=== PATIENT | female | born 1945 | race Caucasian/White ===

== ENCOUNTER 2017-06-02 12:59 | Emergency (ER) | payer OTHER ==
--- NOTE | 2017-06-02 13:15 | EDPHY ---
H & P Time Seen by Provider: 06/02/17 13:13 HPI/ROS: CHIEF COMPLAINT: Left-sided scapula pain radiating to chest HISTORY OF PRESENT ILLNESS: The patient is a 71 y/o female complaining of left-sided scapular pain. Onset of left upper back pain 1 week ago. The pain has been constant since then and radiates to her shoulder. She initially noticed the pain when it woke her up while sleeping 1 week ago. The pain is more pronounced at night and when she takes a deep breath. Moving her head, neck, or arm does not aggravate her symptoms. Physical exertion does not worsen or alleviate her symptoms. Tylenol does alleviate her symptoms. She has been more stressed lately due to planning for a move, and has been lifting and moving boxes in preparation for the move. Her was just diagnosed with recurrent glioblastoma also. No numbness, weakness, cough, fever, or recent illness. Denies history of cardiac or pulmonary problems. Denies smoking or taking hormone replacements. Denies familial history of cardiac problems at a young age, HTN, DM or smoking. No leg pain/swelling or recent prolonged travel. REVIEW OF SYSTEMS: Aside from elements discussed in the HPI, a comprehensive 10-point review of systems was reviewed and is negative. Past Medical/Surgical History: Hyperlipidemia, depression Social History: , visiting her daughter in [place], retired Smoking Status: Never smoked Physical Exam: General Appearance: Alert, pleasant Eyes: Pupils equal and round, no conjunctival pallor ENT, Mouth: Mucous membranes moist Neck: Normal inspection, no tenderness, no pain with ROM Back: Pain is localized to left periscapular area, palpation does not cause pain , no midline tenderness Respiratory: Lungs are clear to auscultation Cardiovascular: Regular rate and rhythm Gastrointestinal: Abdomen is soft and non-tender Neurological: A&O, motor/sensory intact Skin: Warm and dry, no rash Extremities: Nontender, no swelling Vascular: 2+ radial pulses Psychiatric: Mood and affect normal Constitutional: Initial Vital Signs Temperature (C) 36.9 C 06/02/17 13:05 Heart Rate 65 06/02/17 13:05 Respiratory Rate 16 06/02/17 13:05 Blood Pressure 154/85 H 06/02/17 13:05 O2 Sat (%) 96 06/02/17 13:05 O2 Delivery Mode Room Air Allergies/Adverse Reactions: No Known Allergies Allergy (Unverified 06/02/17 13:05) Home Medications: Medication Instructions Recorded Lexapro 06/02/17 SIMVASTATIN 06/02/17 Medical Decision Making - Diagnostics EKG Interpretation: EKG interpreted by me reveals normal sinus rhythm with a rate of 60, normal axis , normal intervals, ST and T segments normal. Interpretation: normal EKG Imaging Results: Chest X-Ray 06/02/17 13:42 Impression: 1. No source for symptoms identified. Might the patient's pain be related to cervical spondylosis? Might cervical x-rays be of any utility? 2. Small 8mm right lower lobe nodule. If there are any old outside chest x-rays we would be happy to review them to assess for interval change. If not, recommend noncontrast chest CT. A message was left with Archie, for Dr. Bassett at 2:10 PM. Imaging: I viewed and interpreted images myself ED Course/Re-evaluation: The patient is a 71 y/o female presenting with pain that is localized to her left periscapular area. Pain is prolonged/constant and does not suggest ACS, PE or other serious etiology. Likely musculoskeletal pain. stat EKG reveals no evidence of ischemia or dysrhythmia. Chest x-ray reveals a small right lower lobe nodule and DJD. Chest x-ray discussed with the patient. She thinks that she had a prior lung nodule on prior CXR and will follow up with her primary care physician promptly regarding this finding. The x-ray reveals thoracic DJD , which may certainly be causing the left-sided upper back pain. She was given a CD of her x-ray. D-dimer is normal and pt has no RF for PE; I feel that I can safely exclude PE as dx. No evidence of pneumonia/PTX. 1448: Patient's labs, EKG, and imaging are normal. I reassessed the patient and discussed these results. Her symptoms are c/w acute thoracic musculoskeletal pain. Return precautions provided; patient is comfortable with this plan. Differential Diagnosis: Differential diagnosis includes does not limited to acute coronary syndrome, pulmonary embolism, pneumonia, pneumothorax, radiculopathy. - Data Points Laboratory Results: Laboratory Results 06/02/17 13:25 06/02/17 13:25 Departure - Departure Disposition: Home, Routine, Self-Care Clinical Impression: Acute thoracic back pain Qualifiers: Back pain laterality: right Qualified Code(s): M54.6 - Pain in thoracic spine Condition: Good Instructions: Back Pain (ED) Additional Instructions: Take ibuprofen, 600mg every 6-8 hours, as needed for pain Use a lidocaine patch as needed for pain. You have a right lung nodule. Followup with your doctor promptly regarding this finding. Take the CD of your chest Xray to your visit. Follow up with your primary care provided in the next week for unimproved symptoms. Return to the Emergency Department for fever, chest pain, shortness of breath, increasing pain or other worsening of condition. Referrals: Christie Terry MD [Medical Doctor] - As per Instructions Report Scribed for: Shirin Bassett Report Scribed by: Dea Simpson Date of Report: 06/02/17 Time of Report: 13:15 Physician Review and Approval Statement: 06/02/17 13:15 Portions of this note were transcribed by a medical imaging technician. I personally performed a history, physical exam, medical decision making, and confirmed accuracy of information the transcribed note.
--- NOTE | 2017-06-02 13:17 | CPEKG ---
Heart Rate: 60 RR Interval: 1000 P-R Interval: 144 QRSD Interval: 92 QT Interval: 412 QTC Interval: 412 P [place]: 56 QRS [place]: 15 T Wave [place]: 49 EKG Severity - NORMAL ECG - EKG Impression: SINUS RHYTHM Electronically Signed By: Shirin Bassett 02-Jun-2017 21:15:19
[2017-06-02 13:48] LABS: PLATELET COUNT 241 10^3/uL (150-400)
[2017-06-02 15:35] VITALS: BP 136/78
== END 2017-06-02 15:34 | disposition home or self-care (01) ==
DX: M54.6 Pain in thoracic spine (principal)